=== PATIENT | female | born 1950 | race Two or more races ===

== ENCOUNTER 2025-05-01 18:33 | Emergency (ER) | payer MEDICAID, OTHER ==
[~2025-05-01] VITALS: Ht 142.2 cm; Wt 63.5 kg
[~2025-05-01 18:33] MED LIST: AMLO-212 PO; BENA20TA9 PO; FOLI1TAB16 PO; GABA-534 PO; HYDR25TA4 PO; METH2.5T PO; MIRT-90 PO; PRED5TAB PO; PROP10TA10 PO
[2025-05-01] MEDS ORDERED: TDAP [DIPH/PERTUSSIS/TET] 0.5 ML VIAL IM ONE (19:13)
[2025-05-01] MEDS: TDAP [DIPH/PERTUSSIS/TET] 0.5 ML VIAL IM ONE (19:16)
[2025-05-01] MEDS ORDERED: LIDOCAINE 1%-EPI 1:100,000 20 ML VIAL ONE (19:27)
[2025-05-01 20:12] VITALS: BP 154/71; TEMP 98; O2SAT 99
== END 2025-05-01 20:13 | disposition home or self-care (01) ==
LOC: ER 18:33
DX: S01.01XA Laceration without foreign body of scalp, initial encounter (principal); I10 Essential (primary) hypertension; H54.61 Unqualified visual loss, right eye, normal vision left eye; F03.90 Unspecified dementia, unspecified severity, without behavioral disturbance, psychotic disturbance, mood disturbance, and anxiety; E11.9 Type 2 diabetes mellitus without complications; I67.82 Cerebral ischemia; Z79.52 Long term (current) use of systemic steroids; Z79.631 Long term (current) use of antimetabolite agent; Z79.899 Other long term (current) drug therapy; W22.09XA Striking against other stationary object, initial encounter; Y93.89 Activity, other specified; Y92.89 Other specified places as the place of occurrence of the external cause; Y99.8 Other external cause status
CPT/HCPCS: 12002; 70450; 72125; 90471; 90715; 99285; J3490